=== PATIENT | male | born 1990 | race Caucasian/White ===

== ENCOUNTER 2018-03-21 10:32 | Day surgery (SDC) | payer BC ==
[2018-03-20 16:27] VITALS: BMI 24.3
--- NOTE | 2018-03-21 00:59 | HP ---
HISTORY OF PRESENT ILLNESS: This is a 27-year-old male, comes in for colonoscopy because he has a history of rectal bleeding. He also complains of perianal discomfort and itching. Although he has been tried on various medicines including Proctocream, hydroxyzine, and various rectal creams, his perianal itching persists. He also complains of some bleeding and some loose stools off and on. The patient is undergoing colonoscopy because of the above reason. ALLERGIES: LATEX. NO DRUG ALLERGIES. MEDICAL ILLNESSES: No major medical illness. PHYSICAL EXAMINATION: VITAL SIGNS: Pulse is 70, blood pressure 130/80. HEENT: Conjunctivae clear. CARDIOVASCULAR: First and second heart sounds. LUNGS: Clear to auscultation. ABDOMEN: Soft. No organomegaly. No tenderness. No masses. RECTAL: Does not exhibit hemorrhoids or a lesion. ADMITTING DIAGNOSIS: A 27-year-old male with hematochezia. PLAN: Colonoscopy. Job ID: [id number]
[2018-03-21] MEDS ORDERED: PROPOFOL 200 MG/20 ML VIAL ONE (15:53)
[2018-03-21] MEDS ORDERED: Lidocaine 1% PF 5 ML VIAL ONE (15:53)
--- NOTE | 2018-03-21 19:56 | OP ---
DATE OF PROCEDURE: 03/21/2018 PROCEDURE PERFORMED: Colonoscopy. PREOPERATIVE DIAGNOSIS: Rectal bleeding. POSTOPERATIVE DIAGNOSIS: Normal colonoscopy. DESCRIPTION OF PROCEDURE: The patient was placed on his left lateral position and was given sedation by Anesthesia Department. A rectal exam was done before the scope was advanced into the rectum. No lesions felt on rectal exam. A [employer]ax video colonoscope was first introduced into the rectum and advanced all the way to the cecum. The mucosa appeared normal throughout the colon with normal vascular pattern. In the appendiceal orifice, ileocecal valve, cecum, no pathology seen. Withdrawal of scope from the cecum, ascending colon, hepatic flexure, no pathology seen. In the transverse colon, splenic flexure, descending colon, sigmoid colon, no pathology seen. I could not retroflex the scope, but careful examination of the anal canal showed no pathology. DISCHARGE PLANNING: This is a 27-year-old male came for colonoscopy, hematochezia. The colonoscopy was basically negative. No colitis seen. Also I do not see any hemorrhoids. DISCHARGE RECOMMENDATIONS: 1. High-fiber diet. 2. The patient is reassured about the negative colonoscopy and will come back to me in the next two weeks. Job ID: [id number]
== END 2018-03-21 13:10 | disposition home or self-care (01) ==
LOC: SDC 10:32
PROVIDERS: ATTEND Internal Medicine Gastroenterology
PROC: 0DJD8ZZ Inspection of Lower Intestinal Tract, Via Natural or Artificial Opening Endoscopic (ICD-10-PCS; principal; 2018-03-21)
DX: K92.1 Melena (principal); Z79.899 Other long term (current) drug therapy; Z91.040 Latex allergy status
CPT/HCPCS: J2001; J2704